=== PATIENT | female | born 2000 | race Caucasian/White ===

== ENCOUNTER 2024-09-11 10:10 | Emergency (ER) | payer BC, MEDICAID ==
[~2024-09-11] VITALS: Ht 162.6 cm; Wt 93.4 kg
[~2024-09-11 10:10] MED LIST: CYCL-394 PO
[2024-09-11 10:28] VITALS: PULSE 97
--- NOTE | 2024-09-11 10:39 | Physician Documentation ---
History of Present Illness General Chief Complaint: Diarrhea Stated Complaint: DIARRHEA Time Seen by MD: 10:26 Mode of Arrival: POV History of Present Illness Initial Comments The patient is a 24-year-old female with no significant past medical history who has had two days of nonbloody diarrhea and nausea without vomiting. It started after she had a meal on Wednesday but multiple other people ate the same food without symptoms. Her diarrhea has been about every 10-20 minutes. She has not been camping recently and has not had any suspect water to drink. Medication Reconciliation Allergies: Coded Allergies: codeine (Verified Allergy, Severe, 02/21/13) Uncoded Allergies: FISH/FISH OILS (Allergy, Severe, 02/21/13) Scheduled Cyclobenzaprine HCl (Cyclobenzaprine HCl), 5 MG PO BID Past Medical History Past Medical History: No Pertinent History Past Surgical History: no surgical history Smoking: Non-Smoker Alcohol Use: None Drug Use: none Review of Systems ROS Constitutional: Denies chills, fatigue, fever, weight gain or weight loss. HEENT: Denies hearing loss, sinus pressure or visual changes. Respiratory: Denies cough, shortness of breath or wheezing. Cardiovascular: Denies chest pain, pain while walking (claudication), edema or palpitations. Gastrointestinal: Nausea and diarrhea, no vomiting Genitourinary: Denies painful urination (dysuria), excessive amount of urine (polyuria) or urinary frequency. Metabolic/Endocrine: Denies cold intolerance, heat intolerance, excessive thirst (polydipsia) or excessive hunger (polyphagia). Neurological: Denies dizziness, extremity numbness, extremity weakness, headach es, seizures or tremors. Psychiatric: Denies anxiety or depression. Integumentary: Denies breast discharge, breast lump, hives, mole change(s), rash or skin lesion. Musculoskeletal: Denies back pain, joint pain, joint swelling or neck pain. Hematologic: Denies easily bleeding, easily bruises, lymphedema or issues with blood clots. Immunologic: Denies food allergies or seasonal allergies. Physical Exam Physical Exam Vital Signs: Temperature: 98.2, Source: Temporal, Heart Rate: 97, Respiratory Rate: 18, BP: 160/95, Pulse Oximetry: 100, Weight: 93.400 Oxygen Flow Rate: 0 Physical Exam Physical Exam Vitals and nursing note reviewed. Constitutional: General: Patient is awake, alert, oriented x 4 in no acute distress and well appearing. Speech is clear and lucid. Appearance: Normal appearance. Patient is not ill-appearing, toxic-appearing or diaphoretic. HENT: Head: Normocephalic and atraumatic. Mouth/Throat: Mouth: Mucous membranes are moist. Pharynx: Oropharynx is clear. Eyes: General: No scleral icterus. Extraocular Movements: Extraocular movements intact. Pupils: Pupils are equal, round, and reactive to light. Cardiovascular: Rate and Rhythm: Normal rate and regular rhythm. Heart sounds: No murmur heard. Pulmonary: Effort: No respiratory distress. Breath sounds: No wheezing, rhonchi or rales. Abdominal: General: There is no distension. Palpations: There is no fluid wave, hepatomegaly or mass. Tenderness: There is no abdominal tenderness. There is no guarding. Musculoskeletal: General: No swelling or deformity. Skin: Coloration: Skin is not jaundiced. Findings: No erythema or rash. Neurological: Mental Status: Patient is alert. Progress Results/Orders Results/Orders Orders - MARIA LUISA WYMAN MD Urinalysis, Cult If Indicated (09/11/24 10:15) Hcg, Ur Ql (09/11/24 10:15) Cbc/Diff (09/11/24 10:15) BMP (09/11/24 10:15) Lipase (09/11/24 10:15) CMP (09/11/24 10:15) Vital Signs 09/11/24 09/11/24 09/11/24 10:13 10:28 10:28 Temp 98.2 Pulse 101 97 Resp 15 18 18 B/P (MAP) 130/91 160/95 (116) Pulse Ox 98 100 O2 Flow Rate 0 Laboratory Tests Test 09/11/24 10:26 CBC Comment Chemistry Comments Medical Decision Making Findings This 24-year-old female presents with nausea and diarrhea for two days. She has a benign examination. I am going to prescribe Zofran and some Imodium. Departure Disposition: HOME / SELF CARE / HOMELESS Impression: Primary Impression: Diarrhea Condition: Stable Additional Instructions: Please take the medication, as directed. Stay well hydrated with any of the standard rehydration formulas. Follow-up with your PCP or return here for worsening symptoms or new/unusual symptoms. Referrals: NO PRIMARY CARE PROVIDER (PCP) Prescriptions Loperamide HCl (Imodium A-D) 2 Mg Tablet 1 TAB PO Q4H PRN for diarrhea, #20 TABLET 1 after each loose stool up to 8 a day Prov: MARIA LUISA WYMAN MD 09/11/24 ONDANSETRON ODT 4mg tablet (ONDANSETRON ODT) 4 Mg Tab.rapdis 1 TAB PO Q6H PRN PRN for nausea/vomiting for 4 Days, #16 TAB 0 Refills Prov: MARIA LUISA WYMAN MD 09/11/24 Education Educated: Patient Educated regarding: diagnosis, treatment, prognosis, need for follow up Signature Scribe Signature: . Attestation: . MARIA LUSIA WYMAN MD Sep 11, 2024 10:39
[2024-09-11] MEDS ORDERED: LOPE-144 PO (10:41)
[2024-09-11] MEDS ORDERED: ONDA-243 PO (10:41)
[2024-09-11 10:48] LABS: BASOPHILS % (AUTO) 0.2 % (0-1); EOSINOPHILS % (AUTO) 0.4 % (0-6); HEMOGLOBIN 14.5 g/dl (12.0-16.0); LYMPHOCYTES # (AUTO) 1.5 X10'3 (1.1-4.8); MEAN CORPUSCULAR HEMOGLOBIN 27.8 PG (27.0-31.0); MEAN CORPUSCULAR HGB CONC 33.7 g/dL (33.0-36.5); MEAN CORPUSCULAR VOLUME 82.4 FL (78-98); MEAN PLATELET VOLUME 8.4 FL (7.4-10.4); MONOCYTES # (AUTO) 0.6 X10'3 (0-0.9); MONOCYTES % (AUTO) 11.6 % (2-12); NEUTROPHILS # (AUTO) 3.3 X10'3 (1.8-7.7); NEUTROPHILS % (AUTO) 59.8 % (42-75); PLATELET COUNT 258 X10'3 (140-440); RED BLOOD COUNT 5.22 X10'6 (4.20-5.60); RED CELL DISTRIBUTION WIDTH 14.1 % (11.5-14.5); WHITE BLOOD COUNT 5.5 X10'3 (4.5-11.0)
[2024-09-11 10:49] LABS: ALANINE AMINOTRANSFERASE 61 U/L (12-78); ALBUMIN/GLOBULIN RATIO 0.9 (1.1-1.5); ALKALINE PHOSPHATASE 125 IU/L (46-116); ANION GAP 14 (8-16); ASPARTATE AMINO TRANSFERASE 44 U/L (10-37); BILIRUBIN,TOTAL 0.7 MG/DL (0.1-1.0); BLOOD UREA NITROGEN 13 MG/DL (7-18); BUN/CREATININE RATIO 12.3 (10.0-20.0); CALCIUM 8.7 MG/DL (8.5-10.1); CHLORIDE 105 MMOL/L (99-107); CREATININE 1.06 MG/DL (0.40-0.90); GLUCOSE 98 MG/DL (70-104); LIPASE 60 U/L (16-77); POTASSIUM 3.5 MMOL/L (3.5-5.1); SODIUM 138 MMOL/L (135-145); TOTAL CARBON DIOXIDE 19.1 MMOL/L (24-32); TOTAL PROTEIN 8.6 G/DL (6.4-8.2); eCRCL 70 ML/MIN; eGFR 63 ML/MIN
[2024-09-11 10:51] VITALS: BP 138/66; RESP 16; TEMP 98.2; O2SAT 99
== END 2024-09-11 10:57 | disposition home or self-care (01) ==
LOC: ER 10:11
DX: R19.7 Diarrhea, unspecified (principal); R11.0 Nausea; Z88.5 Allergy status to narcotic agent; Z79.899 Other long term (current) drug therapy
CPT/HCPCS: 36415; 80053; 83690; 85025; 99283